=== PATIENT | male | born 1990 | race Native Hawaiian/Other Pacific Islander ===

== ENCOUNTER 2016-09-10 03:50 | Inpatient (IN) | payer MEDICAID ==
[~2016-09-10] VITALS: Ht 185.4 cm; Wt 62.9 kg
[2016-09-10 03:52] VITALS: BP 130/75; PULSE 88; RESP 16; TEMP 98.9; O2SAT 99
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
[2016-09-10 04:48] LABS: AUTOMATED NEUTROPHIL # 3.9 TH/MM3 (1.8-7.7); BASOPHIL % 0.7 % (0.0-2.0); EOSINOPHIL # 0.2 TH/MM3 (0-0.4); EOSINOPHIL % 2.2 % (0.0-4.0); HEMATOCRIT 41.7 % (39.0-51.0); HEMO FLAGS DIFF FINAL; LYMPH % 34.8 % (9.0-44.0); LYMPHOCYTE # 2.4 TH/MM3 (1.0-4.8); MEAN CELL VOLUME 83.5 FL (80.0-100.0); MEAN CORPUSCULAR HEMOGLOBIN 28.1 PG (27.0-34.0); MEAN CORPUSCULAR HGB CONC 33.6 % (32.0-36.0); MONO % 7.4 % (0.0-8.0); NEUT % 54.9 % (16.0-70.0); PLATELET COUNT 290 TH/MM3 (150-450); RED BLOOD COUNT 4.99 MIL/MM3 (4.50-5.90); RED CELL DISTRIBUTION WIDTH 14.3 % (11.6-17.2)
[2016-09-10 05:11] LABS: ALT (GPT) 28 U/L (12-78); ANION GAP 6 MEQ/L (5-15); AST (GOT) 26 U/L (15-37); BICARBONATE 27.9 MEQ/L (21.0-32.0); BLOOD UREA NITROGEN 19 MG/DL (7-18); CHLORIDE 106 MEQ/L (98-107); GLOMERULAR FILTRATION RATE 113 ML/MIN (>89); POTASSIUM 3.7 MEQ/L (3.5-5.1); SODIUM (NA) 140 MEQ/L (136-145)
[2016-09-10 05:13] LABS: ACETAMINOPHEN LESS THAN 2.0 MCG/ML (10.0-30.0); ALKALINE PHOSPHATASE 88 U/L (45-117)
[2016-09-10 06:00] LABS: BLOOD, URINE NEG (NEG); COMMENT (UR) CULT NOT INDICATED; CULTURE IF INDICATED CULT NOT INDICATED; GLUCOSE,URINE NEG (NEG); KETONE, URINE NEG (NEG); MUCUS URINE FEW /lpf (OCC); NITRITE,URINE NEG (NEG); URINE COLOR YELLOW (YELLW/STRAW)
[2016-09-10 06:06] LABS: AMPHETAMINE, URINE NEG (NEG); BARBITURATES, URINE NEG (NEG); COCAINE, URINE NEG (NEG)
[2016-09-10 10:03] VITALS: BP 118/64; PULSE 92; RESP 15; O2SAT 97
[2016-09-10] MEDS ORDERED: ALUMINUM/MAGNESIUM/SIMETH 30 ML CUP PO PRN (12:15)
[2016-09-10] MEDS ORDERED: LORazepam 2 MG/ML VIAL IM PRN ×2 (12:15)
[2016-09-10] MEDS ORDERED: MAGNESIUM HYDROXIDE SUSP 30 ML CUP PO PRN (12:15)
[2016-09-10] MEDS ORDERED: diphenhydrAMINE HCL 50 MG/ML VIAL IM PRN (12:15)
[2016-09-10] MEDS ORDERED: LORazepam 0.5 MG TAB PO PRN (12:15)
[2016-09-10] MEDS ORDERED: ACETAMINOPHEN 325 MG TAB PO PRN (12:15)
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
[2016-09-10] MEDS ORDERED: ZIPRASIDONE MESYLATE 20 MG VIAL IM ONE ×2 (13:09→14:00)
[2016-09-10 13:34] VITALS: BP 129/70; PULSE 80; RESP 18; TEMP 98.2; O2SAT 100
[2016-09-10 13:58] LABS: AMPHETAMINE, URINE NEG (NEG); BARBITURATES, URINE NEG (NEG); COCAINE, URINE NEG (NEG)
[2016-09-10] MEDS ORDERED: LORazepam 2 MG/ML VIAL IM ONE (14:00)
[2016-09-10] MEDS ORDERED: diphenhydrAMINE HCL 50 MG/ML VIAL IM ONE (14:00)
[2016-09-10 16:01] VITALS: BP 121/67; PULSE 80; RESP 20; O2SAT 100
[2016-09-10 18:33] VITALS: BP 124/78; PULSE 88; RESP 16; TEMP 98.4; O2SAT 97
[2016-09-10] MEDS ORDERED: ARIPiprazole 5 MG TAB PO SCH (21:00)
[2016-09-11 06:04] VITALS: BP 126/68; PULSE 101; RESP 18; TEMP 97.1; O2SAT 97
[2016-09-11 08:44] LABS: AUTOMATED NEUTROPHIL # 3.7 TH/MM3 (1.8-7.7); BASOPHIL % 0.5 % (0.0-2.0); EOSINOPHIL # 0.1 TH/MM3 (0-0.4); EOSINOPHIL % 2.3 % (0.0-4.0); HEMATOCRIT 46.1 % (39.0-51.0); HEMO FLAGS DIFF FINAL; LYMPH % 32.1 % (9.0-44.0); MEAN CELL VOLUME 83.9 FL (80.0-100.0); MEAN CORPUSCULAR HEMOGLOBIN 28.1 PG (27.0-34.0); MEAN CORPUSCULAR HGB CONC 33.4 % (32.0-36.0); MONO % 6.4 % (0.0-8.0); NEUT % 58.7 % (16.0-70.0); PLATELET COUNT 312 TH/MM3 (150-450); RED BLOOD COUNT 5.49 MIL/MM3 (4.50-5.90); RED CELL DISTRIBUTION WIDTH 14.5 % (11.6-17.2); WHITE BLOOD COUNT 6.4 TH/MM3 (4.0-11.0)
[2016-09-11] MEDS: NICOTINE 21 MG/24 HR PATCH T-DERMAL SCH (08:56)
[2016-09-11 09:02] LABS: ANION GAP 9 MEQ/L (5-15); BICARBONATE 25.1 MEQ/L (21.0-32.0); BLOOD UREA NITROGEN 12 MG/DL (7-18); CHLORIDE 103 MEQ/L (98-107); POTASSIUM 4.1 MEQ/L (3.5-5.1); SODIUM (NA) 137 MEQ/L (136-145)
[2016-09-11 09:03] LABS: AST (GOT) 27 U/L (15-37); GLOMERULAR FILTRATION RATE 111 ML/MIN (>89)
[2016-09-11 09:30] LABS: ALKALINE PHOSPHATASE 101 U/L (45-117); ALT (GPT) 28 U/L (12-78); HDL CHOLESTEROL 47.9 MG/DL (40.0-60.0); LDL CHOLESTEROL 129 MG/DL (0-99); TOTAL BILIRUBIN ADULT 0.6 MG/DL (0.2-1.0)
--- NOTE | 2016-09-11 11:42 | HHI.PYPN ---
Subjective Remarks Patient seen and examined with counselor and nurse. Chart reviewed. Case discussed with nursing staff. Patient has been fairly appropriate since arriving on the unit although he was apparently agitated in the ED and required Geodon ETO. On my examination today, the patient says that he came into the ED because he was having pain in his legs and also to get his blood checked. He says that he was staying near a gas station "and an unusual smell entered my nose and I wanted to get my blood checked." Patient apparently believes that he was poisoned in some way by this smell. He says that he had to throw away all of his belongings because he believes they were contaminated with this smell. He endorses ongoing auditory hallucinations, which he describes as "annoying" but not commanding in nature. No ideas of reference. Possibly some thought manipulation. Denies suicidal or homicidal ideation. Does exhibit some echopraxia. Sleep and appetite fair. Reports a history of ADHD and bipolar disorder. Denies a history of suicide attempts. Admits to occasional use of cannabis and also smokes cigarettes. He is on disability and collects food stamps. Reports good response and tolerability to Seroquel in the past. Review of Systems ROS Limitations: Psychotic Except as stated in HPI: all other systems reviewed are Neg Objective Alert: Yes [place]: Person, Place, Date Mood: Calm Affect: Blunted Memory Intact: Comment (seems fair on clinical exam although psychosis interferes somewhat) Hallucinations: Auditory (annoying) Delusions: Yes Delusion Type: Paranoid Suicidal: Ideation (denies suicidal ideation) Homicidal: Ideation (denies homicidal ideation) Insight/Judgment Poor Remarks No motor abnormalities noted. Thought processes fairly linear within delusional system. Grooming and hygiene good. Speech within normal limits for rate, tone and volume. Labs Test 09/11/16 07:35 White Blood Count 6.4 TH/MM3 Red Blood Count 5.49 MIL/MM3 Hemoglobin 15.4 GM/DL Hematocrit 46.1 % Mean Corpuscular Volume 83.9 FL Mean Corpuscular Hemoglobin 28.1 PG Mean Corpuscular Hemoglobin 33.4 % Concent Red Cell Distribution Width 14.5 % Platelet Count 312 TH/MM3 Mean Platelet Volume 8.4 FL Neutrophils (%) (Auto) 58.7 % Lymphocytes (%) (Auto) 32.1 % Monocytes (%) (Auto) 6.4 % Eosinophils (%) (Auto) 2.3 % Basophils (%) (Auto) 0.5 % Neutrophils # (Auto) 3.7 TH/MM3 Lymphocytes # (Auto) 2.0 TH/MM3 Monocytes # (Auto) 0.4 TH/MM3 Eosinophils # (Auto) 0.1 TH/MM3 Basophils # (Auto) 0.0 TH/MM3 CBC Comment DIFF FINAL Differential Comment Sodium Level 137 MEQ/L Potassium Level 4.1 MEQ/L Chloride Level 103 MEQ/L Carbon Dioxide Level 25.1 MEQ/L Anion Gap 9 MEQ/L Blood Urea Nitrogen 12 MG/DL Creatinine 0.84 MG/DL Estimat Glomerular Filtration 111 ML/MIN Rate Random Glucose 92 MG/DL Calcium Level 8.8 MG/DL Total Bilirubin 0.6 MG/DL Aspartate Amino Transf 27 U/L (AST/SGOT) Alanine Aminotransferase 28 U/L (ALT/SGPT) Alkaline Phosphatase 101 U/L Total Protein 7.6 GM/DL Albumin 4.0 GM/DL Triglycerides Level 81 MG/DL Cholesterol Level 193 MG/DL LDL Cholesterol 129 MG/DL HDL Cholesterol 47.9 MG/DL Cholesterol/HDL Ratio 4.02 RATIO Vitamin B12 Level 676 PG/ML 25-Hydroxy Vitamin D Total 10.3 ng/ML Thyroid Stimulating Hormone 0.403 uIU/ML 3rd Gen Labs reviewed. CBC unremarkable. CMP unremarkable. Low vitamin D level noted. TSH within normal limits. B12 level within normal limits. Toxicology positive for cannabinoids. Vitals/IOs Vital Signs Date Time Temp Pulse Resp B/P Pulse Ox O2 Delivery O2 Flow Rate FiO2 09/11/16 06:04 97.1 101 18 126/68 97 09/10/16 16:01 Room Air Intake and Output 09/10/16 09/10/16 09/11/16 08:00 16:00 00:00 Intake Total 240 ml Balance 240 ml Assessment & Plan Problem List: (1) Chronic paranoid schizophrenia ICD Code: F20.0 (2) Use of cannabis Assessment & Plan: Rule out use disorder ICD Code: F12.90 Assessment & Plan Discontinue Abilify. Replace with Seroquel 50 mg twice daily with plans to titrate to effect. Initiate vitamin D supplementation. Continue to monitor on the high acuity unit. Continue other medications and care as ordered. The patient may sign voluntary consent for medications. Justification for Cont. Inpt. Medication changes in process. Impairment in reality construction. High risk for decompensation pending psychiatric stabilization. Discharge Planning Pending psychiatric stabilization. I anticipate the patient will require between 7 and 9 inpatient days. Request HC Surrog/Guard Advoc?: No Spencer Olivia MD Sep 11, 2016 11:42
--- NOTE | 2016-09-11 13:46 | EKG ---
Date Performed: 09/11/2016 Time Performed: 07:30:09 PTAGE: 25 years EKG: Sinus rhythm POSSIBLE RIGHT VENTRICULAR CONDUCTION DELAY BORDERLINE ECG NO PREVIOUS TRACING DOCTOR: Aicha Denton Interpretating Date/Time 09/11/2016 13:43:01
[2016-09-11 15:54] LABS: HEMOGLOBIN A1b 0.7 %; HEMOGLOBIN Ao 86.6 %; HEMOGLOBIN F 1.3 %; HEMOGLOBIN LA1C 1.8 %; HEMOGLOBIN P3 3.3 %
[2016-09-11 17:56] VITALS: BP 136/72; PULSE 84; RESP 18; TEMP 98.2; O2SAT 99
[2016-09-11] MEDS: QUEtiapine FUMARATE 25 MG TAB PO SCH (20:32)
[2016-09-12 06:04] VITALS: BP 101/54; PULSE 73; RESP 16; TEMP 98.4; O2SAT 99
[2016-09-12] MEDS: CHOLECALCIFEROL (VIT D3) 1000 UNIT TAB PO SCH (09:00)
[2016-09-12] MEDS: QUEtiapine FUMARATE 25 MG TAB PO SCH (09:00)
[2016-09-12] MEDS: NICOTINE 21 MG/24 HR PATCH T-DERMAL SCH (09:00)
--- NOTE | 2016-09-12 13:46 | HHI.PYPN ---
Subjective Remarks Patient seen and examined. Chart reviewed. Case discussed with nursing staff. On my examination today, the patient presents as a little bit irritable. Continues to articulate some paranoid delusions. Associations perhaps a little bit loose. Denies audiovisual hallucinations but appears internally stimulated. Requesting his Seroquel to be dosed exclusively at night. Denies side effects from medications. No physical complaints. Review of Systems ROS Limitations: Psychotic, Poor Historian Except as stated in HPI: all other systems reviewed are Neg Objective Alert: Yes [place]: Person, Place, Date Mood: Calm Affect: Other (mildly irritable) Memory Intact: Comment (fair) Hallucinations: Other (int stim) Delusions: Yes Delusion Type: Paranoid Suicidal: Ideation (No SI) Homicidal: Ideation (No HI) Insight/Judgment Poor Remarks No abnormal motor movements noted. Grooming and hygiene fair. Labs Labs reviewed. Vitals/IOs Vital Signs Date Time Temp Pulse Resp B/P Pulse Ox O2 Delivery O2 Flow Rate FiO2 09/12/16 06:04 98.4 73 16 101/54 99 09/10/16 16:01 Room Air Assessment & Plan Problem List: (1) Chronic paranoid schizophrenia ICD Code: F20.0 (2) Use of cannabis ICD Code: F12.90 Assessment & Plan Consolidate Seroquel to 100 mg at bedtime. Titrate this agent through the weekend. Continue to monitor on the inpatient unit. Continue other medications and care as ordered. Patient completed voluntary paperwork per nursing staff. Justification for Cont. Inpt. Med changes in process. High risk for decompensation pending psychiatric stabilization. Discharge Planning Pending psychiatric stabilization. Possible discharge beginning of next week. Request HC Surrog/Guard Advoc?: No Spencer Olivia MD Sep 12, 2016 13:46
[2016-09-12 16:15] VITALS: BP 125/64; PULSE 99; RESP 18; O2SAT 99
[2016-09-12] MEDS: diphenhydrAMINE HCL 50 MG CAP PO PRN (18:00)
[2016-09-12] MEDS: LORazepam 1 MG TAB PO PRN (18:00)
[2016-09-12] MEDS ORDERED: QUEtiapine FUMARATE 100 MG TAB PO SCH (21:00)
[2016-09-13 05:58] VITALS: BP 109/57; PULSE 71; RESP 17; TEMP 97.5; O2SAT 98
[2016-09-13] MEDS: NICOTINE 21 MG/24 HR PATCH T-DERMAL SCH (09:00)
[2016-09-13] MEDS: CHOLECALCIFEROL (VIT D3) 1000 UNIT TAB PO SCH (09:00)
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
[2016-09-13 18:17] VITALS: BP 130/86; PULSE 91; RESP 17; TEMP 97.9; O2SAT 99
[2016-09-13] MEDS: LORazepam 1 MG TAB PO PRN (20:15)
[2016-09-13] MEDS ORDERED: QUEtiapine FUMARATE 100 MG TAB PO SCH (21:00)
[2016-09-13] MEDS ORDERED: QUEtiapine FUMARATE 25 MG TAB PO SCH (21:00)
[2016-09-14 06:18] VITALS: BP 111/65; PULSE 87; RESP 16; TEMP 99.3; O2SAT 100
[2016-09-14] MEDS: LORazepam 1 MG TAB PO PRN ×2 (08:57→17:32)
[2016-09-14] MEDS: CHOLECALCIFEROL (VIT D3) 1000 UNIT TAB PO SCH (08:57)
[2016-09-14] MEDS: NICOTINE 21 MG/24 HR PATCH T-DERMAL SCH (09:00)
[2016-09-14] MEDS: diphenhydrAMINE HCL 50 MG CAP PO PRN ×2 (09:11→20:14)
--- NOTE | 2016-09-14 14:38 | HHI.PYPN ---
Subjective Remarks Pt seen and discussed with staff. He was agitated this morning believing that people are trying to spy on his testicles and the police are after him. He calmed after ativan was given. He remains paranoid and loose. Insight into illness is poor and he states that psychosis is an "illuminati word." No SI/ HI. He is tolerating seroquel titration without side effects. Objective Alert: Yes [place]: Person, Place, Date Mood: Other (irritable) Affect: Restricted Memory Intact: Comment (fair) Hallucinations: Auditory Delusions: Yes Delusion Type: Paranoid Suicidal: Ideation (No SI) Homicidal: Ideation (No HI) Insight/Judgment poor Vitals/IOs Vital Signs Date Time Temp Pulse Resp B/P Pulse Ox O2 Delivery O2 Flow Rate FiO2 09/14/16 06:18 99.3 87 16 111/65 100 09/10/16 16:01 Room Air Assessment & Plan Problem List: (1) Chronic paranoid schizophrenia ICD Code: F20.0 (2) Use of cannabis ICD Code: F12.90 Assessment & Plan Cotninue current tx plan. Estimated LOS: days Justification for Cont. Inpt. psychotic and easily agitated Request HC Surrog/Guard Advoc?: No Sabi Gibson MD Sep 14, 2016 14:38
[2016-09-14 20:00] VITALS: BP 119/63; PULSE 92; RESP 17; TEMP 98.6; O2SAT 99
[2016-09-14] MEDS ORDERED: QUEtiapine FUMARATE 200 MG TAB PO SCH (21:00)
[2016-09-15 06:06] VITALS: BP 115/66; PULSE 88; RESP 18; TEMP 97.8; O2SAT 98
[2016-09-15] MEDS: NICOTINE 21 MG/24 HR PATCH T-DERMAL SCH (09:00)
[2016-09-15] MEDS: CHOLECALCIFEROL (VIT D3) 1000 UNIT TAB PO SCH (09:16)
[2016-09-15] MEDS ORDERED: VITA1000 PO (10:46)
[2016-09-15] MEDS ORDERED: QUET1TAB9 PO (10:46)
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
== END 2016-09-15 13:35 | disposition left against medical advice (07) | DRG 885 ==
LOC: NEPD 03:50 → NEDA 12:10 → H270 18:01
PROVIDERS: ADMIT Psychiatry & Neurology Psychiatry; ATTEND Psychiatry & Neurology Psychiatry
DX: F20.0 Paranoid schizophrenia (principal); R45.851 Suicidal ideations; Z78.1 Physical restraint status; F31.9 Bipolar disorder, unspecified; R45.850 Homicidal ideations; M25.572 Pain in left ankle and joints of left foot; F90.9 Attention-deficit hyperactivity disorder, unspecified type; Z59.0 Homelessness; F12.90 Cannabis use, unspecified, uncomplicated; F17.210 Nicotine dependence, cigarettes, uncomplicated; Z91.14 Patient's other noncompliance with medication regimen
CPT/HCPCS: 80053; 80061; 80307; 81001; 82306; 82607; 83036; 84443; 85025; 93005; J1200; J2060; J3486; Q0163